=== PATIENT | female | born 1965 | race Caucasian/White ===

== ENCOUNTER 2019-07-14 15:25 | Emergency (ER) | payer BC ==
[2019-07-14 15:56] VITALS: BP 115/60
--- NOTE | 2019-07-14 15:58 | UC ---
FLU HPI - HPI Summary HPI Summary: 54-year-old female who has had cough and cold symptoms for the past 2 weeks. She also states her urine has had a strong smell over the past couple of days but no other urinary symptoms. - History of Current Complaint Chief Complaint: UCGeneralIllness Stated Complaint: COUGH, FEVER Time Seen by Provider: 07/14/19 15:26 Hx Obtained From: Patient ?: No Onset/Duration: Gradual Onset Severity Currently: Mild Severity Initially: Mild Pain Intensity: 0 Associated Signs & Symptoms: Positive: Cough - Nonproductive cough, Nasal Congestion - Clear nasal coryza - Allergy/Home Medications Allergies/Adverse Reactions: Allergies Allergy/AdvReac Type Severity Reaction Status Date / Time metronidazole [From Flagyl] Allergy Severe syncope Verified 07/14/19 15:43 bee venom protein (honey bee) Allergy Unknown Hives Verified 07/14/19 15:43 Home Medications: Home Medications Pseudoephedrine HCL ER TAB* [Sudafed 12 Hour*] 120 mg PO BID PRN 07/14/19 [ History Confirmed 07/14/19] Sertraline* [Zoloft*] 50 mg PO DAILY PRN 07/14/19 [History Confirmed 07/14/19] Sulfamethox/Trimethoprim DS* [Bactrim DS 800/160 TAB*] 1 tab PO BID 7 Days #14 tab 07/14/19 [Rx] PMH/Surg Hx/FS Hx/Imm Hx Previously Healthy: Yes - Surgical History Surgical History: Yes Surgery Procedure, Year, and Place: knee surgery - Family History Known Family History: Positive: Non-Contributory - Social History Occupation: Employed Full-time Lives: With Family Alcohol Use: Occasionally Substance Use Type: None Smoking Status (MU): Never Smoked Tobacco Review of Systems All Other Systems Reviewed And Are Negative: Yes Constitutional: Positive: Fever - Occasional fever. ENT: Positive: Nasal Discharge Respiratory: Positive: Cough - Nonproductive cough Gastrointestinal: Positive: Vomiting - Occasionally patient has postnasal drainage which makes her vomit. She states as a child she would always have postnasal drainage and it would make her vomit Genitourinary: Positive: Other - Patient noted a very strong her urine the past couple of days. Musculoskeletal: Positive: Myalgia Is Patient Immunocompromised?: No Physical Exam Triage Information Reviewed: Yes Appearance: Well-Appearing, No Pain Distress, Well-Nourished Vital Signs: Initial Vital Signs Temp 99.6 F 07/14/19 15:46 Pulse 111 07/14/19 15:46 Resp 24 07/14/19 15:46 BP 115/60 07/14/19 15:46 Pulse Ox 97 07/14/19 15:46 Vital Signs Reviewed: Yes Eyes: Positive: Conjunctiva Clear ENT: Positive: Pharynx normal, Nasal congestion, Nasal drainage - Clear nasal coryza, TMs normal, Uvula midline Neck: Positive: Supple, Nontender, No Lymphadenopathy Respiratory: Positive: Lungs clear, Normal breath sounds, No respiratory distress, No accessory muscle use Cardiovascular: Positive: RRR, No Murmur, Pulses Normal, Brisk Capillary Refill Musculoskeletal Exam: Normal Neurological Exam: Normal Psychological Exam: Normal Skin Exam: Normal Flu Course/Dx - Course Course Of Treatment: Rapid influenza test: Negative Urinalysis: Positive for leukocytes, nitrates and blood. Patient is comfortable here and nontoxic. I feel that she has more of a viral upper respiratory illness. I'm going to treat her with Bactrim for the urinary tract infection and she is to follow-up with her primary care provider if no improvement in 3 or 4 days. - Differential Dx/Diagnosis Provider Diagnosis: UTI (urinary tract infection), URI (upper respiratory infection) Discharge ED - Sign-Out/Discharge Documenting (check all that apply): Patient Departure All imaging exams completed and their final reports reviewed: No Studies - Discharge Plan Condition: Good Disposition: HOME Prescriptions: Sulfamethox/Trimethoprim DS* [Bactrim DS 800/160 TAB*] 1 tab PO BID 7 Days #14 tab Patient Education Materials: Urinary Tract Infection in Women (DC), Upper Respiratory Infection (ED) Referrals: [facility] [Outside] No Primary Care Phys,NOPCP [Primary Care Provider] - Additional Instructions: Increase fluids, take the Bactrim with food, follow-up with your primary care provider or [facility] in 3 or 4 days if no improvement. If you develop fever, chills, back pain and vomiting and unable to keep the medicine down you are to go to the emergency room. - Billing Disposition and Condition Condition: GOOD Disposition: Home
[2019-07-14 16:18] LABS: Influenza A Molecular Negative (Negative); Influenza B Molecular Negative (Negative)
== END 2019-07-14 16:46 | disposition home or self-care (01) ==
LOC: UCCORT 15:25
DX: J06.9 Acute upper respiratory infection, unspecified (principal); N39.0 Urinary tract infection, site not specified; Z91.030 Bee allergy status; Z88.1 Allergy status to other antibiotic agents
CPT/HCPCS: 81003; 87077; 87086; 87186; 99202; G0463